=== PATIENT | male | born 1960 | race Caucasian/White ===

== ENCOUNTER → 2017-07-06 | Outpatient (CLI) | payer BC | LOC: LAB 09:51 | DX: R03.0 Elevated blood-pressure reading, without diagnosis of hypertension (principal); E66.8 Other obesity; N52.1 Erectile dysfunction due to diseases classified elsewhere ==

== ENCOUNTER → 2017-07-13 | Outpatient (CLI) | payer BC | LOC: RAD 09:27 | DX: Z13.6 Encounter for screening for cardiovascular disorders (principal); Z87.891 Personal history of nicotine dependence ==

== ENCOUNTER 2017-08-10 03:13 | Emergency (ER) | payer OTHER, BC ==
[~2017-08-10] VITALS: Ht 172.7 cm; Wt 109.1 kg
[2017-08-10] MEDS ORDERED: CYCLOBENZAPRIN7.5 MG PO (04:01)
[2017-08-10] MEDS ORDERED: NORCO 325 MG-51 TA1 PO (04:01)
[2017-08-10] MEDS ORDERED: IBU800 M1 PO (04:01)
[2017-08-10 05:02] VITALS: BP 164/98
== END 2017-08-10 05:02 | disposition home or self-care (01) ==
LOC: ED 03:13
DX: I10 Essential (primary) hypertension (principal); M48.56XA Collapsed vertebra, not elsewhere classified, lumbar region, initial encounter for fracture; V47.0XXA Car driver injured in collision with fixed or stationary object in nontraffic accident, initial encounter; Y92.488 Other paved roadways as the place of occurrence of the external cause
CPT/HCPCS: J1885; J2360

== ENCOUNTER → 2017-08-11 | Outpatient (CLI) | payer OTHER, BC ==
[2017-08-10 05:02] VITALS: BP 164/98
[~2017-08-11] MED LIST: CYCLOBENZAPRIN7.5 MG PO; IBU800 M1 PO; NORCO 325 MG-51 TA1 PO
== END ==
LOC: RAD 07:41
DX: S32.000A Wedge compression fracture of unspecified lumbar vertebra, initial encounter for closed fracture (principal); M43.17 Spondylolisthesis, lumbosacral region; M48.07 Spinal stenosis, lumbosacral region

== ENCOUNTER 2017-11-17 13:03 | Outpatient (RCR) | payer OTHER | END 2017-11-17 13:30 | disposition home or self-care (01) | LOC: PT 13:03 | DX: M43.06 Spondylolysis, lumbar region (principal) ==

== ENCOUNTER → 2018-04-19 | Outpatient (CLI) | payer OTHER | LOC: RAD 13:00 | DX: K43.9 Ventral hernia without obstruction or gangrene (principal) | CPT/HCPCS: Q9967 ==

== ENCOUNTER → 2018-06-01 | Outpatient (CLI) | payer OTHER ==
[~2018-06-01] VITALS: Ht 172.7 cm; Wt 100.9 kg
[~2018-06-01] MED LIST changes: +COLACE100 M1 PO; +CYCLOBENZAPRINE10 M1 PO; +HCTZ 25MG25 MG PO; +MIRALAX17 GM PO; +SENNA8.6 M1 PO
[2018-06-01 10:18] VITALS: BP 150/76
[2018-06-01 10:30] LABS: EOS # 0.2 (0.04-0.40); EOS % 1.9 % (0.0-4.0); HEMATOCRIT 45.9 % (42.0-52.0); HEMOGLOBIN 16.5 g/dL (13.5-18.0); LYMPH# 2.8 (1.50-4.00); MEAN CELL VOLUME 87 fl (78-100); MEAN CORPUSCULAR HEMOGLOBIN 31 pg (27-31); MEAN CORPUSCULAR HGB CONC 36 g/dL (33-37); MEAN PLATELET VOLUME 10.9 fl (7.4-10.4); MONO # 0.7 (0.20-0.80); NEU # 5.5 (1.40-6.50); PLATELET COUNT 176 K/mm3 (130-400); RED BLOOD COUNT 5.28 M/mm3 (4.20-5.60); RED CELL DISTRIBUTION WIDTH 12.5 % (11.5-14.5); WHITE BLOOD COUNT 9.2 K/mm3 (4.8-10.8)
[2018-06-01 10:34] LABS: ALBUMIN 4.2 g/dL (3.5-5.0); CALCIUM 9.2 mg/dL (8.4-10.2); POTASSIUM 4.3 mmol/L (3.6-5.0); TOTAL BILIRUBIN 1.1 mg/dL (0.2-1.3); TOTAL PROTEIN 7.3 g/dL (6.3-8.2)
[2018-06-01 10:58] LABS: URINE APPEARANCE CLEAR; URINE BILIRUBIN NEGATIVE (NEGATIVE); URINE BLOOD NEGATIVE (NEGATIVE); URINE COLOR YELLOW; URINE KETONE NEGATIVE (NEGATIVE); URINE LEUKOCYTE ESTERASE NEGATIVE (NEGATIVE); URINE NITRATE NEGATIVE (NEGATIVE); URINE PROTEIN(semi-quant) NEGATIVE (NEGATIVE); URINE UROBILINOGEN NORMAL (NORMAL); URINE WBC 0-1 /hpf (0-3)
[2018-06-02 12:45] LABS: HEPATITIS C ANTIBODY Negative (Negative)
== END ==
LOC: LAB 09:58 → AMSURD 09:58
PROVIDERS: Family Medicine
DX: Z01.818 Encounter for other preprocedural examination (principal)

== ENCOUNTER → 2018-06-23 | Outpatient (CLI) | payer OTHER ==
[2018-06-01 10:18] VITALS: BP 150/76
== END ==
LOC: RAD 10:53
DX: M77.32 Calcaneal spur, left foot (principal)

== ENCOUNTER → 2018-08-01 | Outpatient (CLI) | payer OTHER ==
[2018-06-01 10:18] VITALS: BP 150/76
[2018-08-01 09:23] LABS: HEMATOCRIT 45.9 % (42.0-52.0); HEMOGLOBIN 16.1 g/dL (13.5-18.0); RED BLOOD COUNT 5.13 M/mm3 (4.20-5.60); RED CELL DISTRIBUTION WIDTH 13.3 % (11.5-14.5); WHITE BLOOD COUNT 8.6 K/mm3 (4.8-10.8)
[2018-08-01 09:30] LABS: ALBUMIN 4.6 g/dL (3.5-5.0); CALCIUM 10.1 mg/dL (8.4-10.2); POTASSIUM 4.1 mmol/L (3.6-5.0); TOTAL BILIRUBIN 0.6 mg/dL (0.2-1.3)
[2018-08-02 00:13] LABS: TESTOSTERONE 313 ng/dL (221-716)
== END ==
LOC: LAB 08:51
PROVIDERS: Family Medicine
DX: Z00.00 Encounter for general adult medical examination without abnormal findings (principal); E34.9 Endocrine disorder, unspecified; E11.9 Type 2 diabetes mellitus without complications; M10.9 Gout, unspecified

== ENCOUNTER 2019-03-20 18:13 | Emergency (ER) | payer OTHER ==
[~2019-03-20] VITALS: Ht 172.7 cm; Wt 98.6 kg
[2019-03-20 18:35] LABS: EOS # 0.2 (0.04-0.40); EOS % 1.9 % (0.0-4.0); HEMATOCRIT 44.9 % (42.0-52.0); HEMOGLOBIN 15.5 g/dL (13.5-18.0); LYMPH# 2.8 (1.50-4.00); MEAN CELL VOLUME 88 fl (78-100); MEAN CORPUSCULAR HEMOGLOBIN 31 pg (27-31); MEAN CORPUSCULAR HGB CONC 35 g/dL (33-37); MONO # 0.8 (0.20-0.80); NEU # 6.4 (1.40-6.50); PLATELET COUNT 180 K/mm3 (130-400); RED BLOOD COUNT 5.08 M/mm3 (4.20-5.60); RED CELL DISTRIBUTION WIDTH 13.7 % (11.5-14.5); WHITE BLOOD COUNT 10.3 K/mm3 (4.8-10.8)
[2019-03-20 18:44] LABS: ALBUMIN 4.3 g/dL (3.5-5.0)
[2019-03-20 18:45] LABS: POTASSIUM 4.3 mmol/L (3.5-5.1)
[2019-03-20 18:46] LABS: CALCIUM 9.8 mg/dL (8.3-10.5)
[2019-03-20 18:47] LABS: TOTAL PROTEIN 7.8 g/dL (6.4-8.3)
[2019-03-20 18:49] LABS: TOTAL BILIRUBIN 0.3 mg/dL (0.2-1.2)
[2019-03-20 18:59] LABS: TROPONIN-I 0.04 ng/mL (<0.030)
[2019-03-20 19:16] VITALS: BP 144/85
== END 2019-03-20 19:16 | disposition short-term general hospital (02) ==
LOC: ED 18:13
PROVIDERS: Nurse Practitioner Primary Care
DX: I21.19 ST elevation (STEMI) myocardial infarction involving other coronary artery of inferior wall (principal); E11.9 Type 2 diabetes mellitus without complications; I10 Essential (primary) hypertension; Z79.84 Long term (current) use of oral hypoglycemic drugs
CPT/HCPCS: J2270; J2405

== ENCOUNTER 2019-06-29 13:45 | Outpatient (RCR) | payer OTHER | END 2019-07-16 | disposition still patient (30) | LOC: CARDREHAB | DX: Z48.812 Encounter for surgical aftercare following surgery on the circulatory system (principal); I21.3 ST elevation (STEMI) myocardial infarction of unspecified site; Z98.61 Coronary angioplasty status ==

== ENCOUNTER → 2020-01-29 | Outpatient (CLI) | payer OTHER | LOC: RAD 14:02 | DX: R07.81 Pleurodynia (principal); W19.XXXA Unspecified fall, initial encounter ==

== ENCOUNTER → 2021-12-29 | Outpatient (CLI) | payer OTHER | LOC: RAD 10:57 | DX: M25.552 Pain in left hip (principal); W19.XXXA Unspecified fall, initial encounter ==

== ENCOUNTER → 2022-01-13 | Outpatient (CLI) | payer OTHER ==
[2022-01-13 17:21] LABS: EOS # 0.28 K/mm3 (0.04-0.40); EOS % 3.4 % (0.0-4.0); HEMATOCRIT 42.5 % (42.0-52.0); HEMOGLOBIN 15.2 g/dL (13.5-18.0); LYMPH# 2.25 K/mm3 (1.50-4.00); MEAN CELL VOLUME 86 fl (78-100); MEAN CORPUSCULAR HEMOGLOBIN 31 pg (27-31); MEAN CORPUSCULAR HGB CONC 36 g/dL (33-37); MEAN PLATELET VOLUME 10.2 fl (7.4-10.4); MONO # 0.75 K/mm3 (0.20-0.80); NEU # 4.91 K/mm3 (1.40-6.50); PLATELET COUNT 197 K/mm3 (130-400); RED BLOOD COUNT 4.93 M/mm3 (4.20-5.60); RED CELL DISTRIBUTION WIDTH 12.3 % (11.5-14.5); WHITE BLOOD COUNT 8.2 K/mm3 (4.8-10.8)
[2022-01-13 17:27] LABS: ALBUMIN 4.3 g/dL (3.4-4.8); POTASSIUM 4.8 mmol/L (3.5-5.1)
[2022-01-13 17:30] LABS: TOTAL PROTEIN 7.6 g/dL (6.2-8.1)
[2022-01-13 17:32] LABS: TOTAL BILIRUBIN 0.6 mg/dL (0.2-1.2)
== END ==
LOC: LAB 16:54
PROVIDERS: Family Medicine
DX: Z00.00 Encounter for general adult medical examination without abnormal findings (principal); Z12.5 Encounter for screening for malignant neoplasm of prostate; N39.0 Urinary tract infection, site not specified; F32.A Depression, unspecified; E11.9 Type 2 diabetes mellitus without complications; E78.5 Hyperlipidemia, unspecified; M10.9 Gout, unspecified; I10 Essential (primary) hypertension; E66.9 Obesity, unspecified; G47.33 Obstructive sleep apnea (adult) (pediatric)

== ENCOUNTER → 2022-05-05 | Outpatient (CLI) | payer OTHER ==
[2022-05-05 12:14] LABS: URINE APPEARANCE CLEAR; URINE BILIRUBIN 1+ (NEGATIVE); URINE BLOOD NEGATIVE (NEGATIVE); URINE COLOR YELLOW; URINE GLUCOSE NEGATIVE (NEGATIVE); URINE KETONE NEGATIVE (NEGATIVE); URINE LEUKOCYTE ESTERASE TRACE (NEGATIVE); URINE MUCUS PRESENT (NOT PRESENT); URINE NITRATE NEGATIVE (NEGATIVE); URINE PROTEIN(semi-quant) 1+ (NEGATIVE); URINE UROBILINOGEN 1 mg/dL (NORMAL)
== END ==
LOC: LAB 11:42
PROVIDERS: Family Medicine
DX: M10.9 Gout, unspecified (principal); R30.9 Painful micturition, unspecified; F32.A Depression, unspecified; I10 Essential (primary) hypertension; G47.33 Obstructive sleep apnea (adult) (pediatric); E11.9 Type 2 diabetes mellitus without complications; E78.5 Hyperlipidemia, unspecified; E66.9 Obesity, unspecified

== ENCOUNTER 2023-05-07 01:12 | Emergency (ER) | payer OTHER ==
[~2023-05-07] VITALS: Ht 172.7 cm; Wt 109.0 kg
[2023-05-07] MEDS ORDERED: INDOMETHACIN SR75 MG PO (01:53)
[2023-05-07] MEDS ORDERED: LOSARTAN POTASS25 MG PO (01:54)
[2023-05-07 02:03] LABS: TOTAL PROTEIN 6.4 g/dL (6.2-8.1)
[2023-05-07 02:04] LABS: BASO # 0.01 K/mm3 (0.02-0.10); EOS # 0.23 K/mm3 (0.04-0.40); EOS % 4.2 % (0.0-4.0); HEMATOCRIT 38.4 % (42.0-52.0); HEMOGLOBIN 13.8 g/dL (13.5-18.0); LYMPH# 1.48 K/mm3 (1.50-4.00); MEAN CELL VOLUME 89 fl (78-100); MEAN CORPUSCULAR HEMOGLOBIN 32 pg (27-31); MEAN CORPUSCULAR HGB CONC 36 g/dL (33-37); MEAN PLATELET VOLUME 10.9 fl (7.4-10.4); MONO # 0.52 K/mm3 (0.20-0.80); PLATELET COUNT 165 K/mm3 (130-400); RED BLOOD COUNT 4.34 M/mm3 (4.20-5.60); WHITE BLOOD COUNT 5.5 K/mm3 (4.8-10.8)
[2023-05-07 02:05] LABS: ALBUMIN 3.7 g/dL (3.4-4.8); CALCIUM 9.5 mg/dL (8.3-10.5); POTASSIUM 4.5 mmol/L (3.5-5.1); TOTAL BILIRUBIN 0.4 mg/dL (0.2-1.2)
[2023-05-07 02:16] LABS: TROPONIN-I 0.036 ng/mL (<0.030)
[2023-05-07 02:20] LABS: D-DIMER 0.46 mg/L FEU (0.15-0.50)
[2023-05-07 03:40] VITALS: BP 161/83
== END 2023-05-07 04:05 | disposition short-term general hospital (02) ==
LOC: ED 01:12
PROVIDERS: Nurse Practitioner
DX: I21.4 Non-ST elevation (NSTEMI) myocardial infarction (principal); Z28.310 Unvaccinated for COVID-19